=== PATIENT | female | born 1945 | race Caucasian/White ===

== ENCOUNTER 2017-09-12 17:42 | Emergency (ER) | payer MEDICARE, OTHER ==
--- NOTE | 2017-09-12 18:27 | UC ---
Dental HPI - HPI Summary HPI Summary: Pt presents with ?dental abscess. She tells me that in early july she had her upper teeth pulled and was fitted for dentures. She has been using them without issue until the last 2-3 nights. When she has been putting them in she is noticing some clear/white drainage come out a small sore on the upper right part of her gums. Has been washing her dentures nightly as instructed. Is still able to eat and drink without difficulty. Denies fever, chills. - History of Current Complaint Stated Complaint: DENTAL Time Seen by Provider: 09/12/17 18:27 Hx Obtained From: Patient Hx Last Menstrual Period: n/a - Allergies/Home Medications Allergies/Adverse Reactions: Allergies Allergy/AdvReac Type Severity Reaction Status Date / Time aspirin Allergy Coughing Verified 09/12/17 18:30 lactose Allergy Constipatio Verified 09/12/17 18:30 n Penicillins Allergy Rash Verified 09/12/17 18:30 wheat Allergy Rash Verified 09/12/17 18:30 Home Medications: Home Medications Cholesterol Med 1 tab PO DAILY 09/12/17 [History Confirmed 09/12/17] PMH/Surg Hx/FS Hx/Imm Hx Endocrine History: Dyslipidemia Cardiovascular History: Hypertension Psychological History: Depression - Surgical History Surgical History: Yes Surgery Procedure, Year, and Place: HYSTERECTOMY FOR UTERINE FIBROID 1990 - Family History Known Family History: Positive: Unknown - Social History Occupation: Retired Lives: With Family Alcohol Use: Occasionally Substance Use Type: Excessive Caffeine Smoking Status (MU): Never Smoked Tobacco Review of Systems Constitutional: Negative Skin: Negative Eyes: Negative ENT: Dental Pain Respiratory: Negative Cardiovascular: Negative Gastrointestinal: Negative Neurovascular: Negative Musculoskeletal: Negative Neurological: Negative Psychological: Negative All Other Systems Reviewed And Are Negative: Yes Physical Exam Triage Information Reviewed: Yes Appearance: Well-Appearing, No Pain Distress, Well-Nourished Vital Signs Reviewed: Yes ENT: Positive: Hearing grossly normal, Pharynx normal, TMs normal. Negative: Pharyngeal erythema, TM bulging, TM dull, TM red, Dental tenderness Dental: Positive: Abscess @ - Right upper gums, Cellulitis @ - Right upper gums. Negative: Percussion Tenderness @, Cervical Lymphadenopathy, Bleeding Neck: Positive: Supple, Nontender, No Lymphadenopathy Respiratory: Positive: Lungs clear, Normal breath sounds, No respiratory distress, No accessory muscle use Cardiovascular: Positive: RRR, No Murmur, Pulses Normal Neurological: Positive: Alert Psychological: Positive: Age Appropriate Behavior Skin: Negative: rashes, significant lesion(s) Dental Complaint Course/Dx - Course Course Of Treatment: Dental abscess right upper gums. Clindamycin. - Differential Dx/Diagnosis Provider Diagnoses: Dental abscess right upper gums Discharge - Sign-Out/Discharge Documenting (check all that apply): Discharge - Discharge Plan Condition: Stable Disposition: HOME Prescriptions: Clindamycin HCl 300 mg PO TID #21 capsule Patient Education Materials: Dental Abscess (ED) Referrals: Muareen Carcamo MD [Primary Care Provider] - Additional Instructions: If you develop a fever, shortness of breath, chest pain, new or worsening symptoms - please call your PCP or go to the ED. - Billing Disposition and Condition Condition: STABLE Disposition: HOME
[2017-09-12 18:29] VITALS: BP 124/77
[2017-09-12] MEDS ORDERED: Clindamycin CAP* 150 MG PO ONE (18:45)
== END 2017-09-12 19:01 | disposition home or self-care (01) ==
LOC: UCCORT 17:42
DX: K04.7 Periapical abscess without sinus (principal); Z88.6 Allergy status to analgesic agent; Z88.0 Allergy status to penicillin
CPT/HCPCS: 99202; A9270-GY; G0463